=== PATIENT | male | born 1995 | race Caucasian/White ===

== ENCOUNTER 2024-01-25 02:37 | Emergency (ER) | payer OTHER, SELFPAY ==
[2024-01-25 02:39] VITALS: BP 115/89; PULSE 81; RESP 20; TEMP 36.6; O2SAT 100
[2024-01-25 03:05] LABS: Basophils Percent Auto 0.1 % (0.2-1.2); Eosinophils Percent Auto 0.1 % (0-4.4); Hematocrit 35.8 % (42.0-52.0); Immature Granulocyte Absolute 0.05 K/mm3 (0.00-0.031); Immature Granulocyte Percent A 0.5 % (0-0.5); Lymphocytes Absolute Auto 1.07 K/mm3 (0.9-3.2); Lymphocytes Percent Auto 10.3 % (18.3-44.2); Mean Corpuscular HGB Conc 27.9 g/dl (32-36); Mean Corpuscular Hemoglobin 24.3 pg (26-34); Mean Corpuscular Volume 87.1 fl (80-100); Mean Platelet Volume 7.9 fl (7.4-10.4); Monocytes Absolute Auto 1.2 K/mm3 (0.1-0.6); Monocytes Percent Auto 11.9 % (2.6-8.5); Neutrophils Absolute Auto 8.1 K/mm3 (1.3-6.7); Neutrophils Percent Auto 77.1 % (45.5-73.1); Nucleated Red Blood Cells Perc 0.2 % (0.0-0.2); Platelet Count Result 270 k/mm3 (150-375); Red Blood Count 4.11 M/mm3 (4.6-6.20); Red Cell Distribution Width 18.1 % (11.5-14.5); White Blood Count 10.4 K/mm3 (4.5-10.0)
[2024-01-25 03:09] LABS: Anisocytosis 1+ (NORMAL); Hypochromasia 1+ (NORMAL); Platelet Estimate Adequate (Adequate); Schistocytes None Seen (NORMAL)
[2024-01-25 03:17] LABS: Alanine Aminotransferase 18 U/L (6-50); Alkaline Phosphatase 46 U/L (38-126); Anion Gap 4 mmol/L (8-16); Aspartate Amino Transferase 21 U/L (17-59); Bilirubin,Total 0.4 mg/dL (0.2-1.3); Blood Urea Nitrogen 25 mg/dL (9-20); Calcium 8.7 mg/dL (8.4-10.2); Carbon Dioxide 30 mmol/L (22-30); Chloride 104 mmol/L (98-107); Estimated CRCL calculation 113 ml/min; Estimated Glomerular Filt Rate > 60; Glucose 113 mg/dL (65-110); Lipase 50 U/L (23-300); Potassium 4.1 mmol/L (3.4-5.0); Sodium 138 mmol/L (137-145)
[2024-01-25 03:21] LABS: Appearance Urine Clear (Clear); Bilirubin Urine Negative (Negative); Blood Urine Negative (Negative); Color Urine Yellow (Yellow); Glucose Urine UA Negative (Negative); Ketones Urine Trace mg/dL (Negative); Leukocyte Esterase Ur Negative LEU/UL (Negative); Nitrate Urine Negative (Negative); Protein Urine Negative (Negative); Specific Grav Ur 1.034 (1.001-1.035); pH Urine 6.5 (5.0-9.0)
[2024-01-25 03:23] LABS: Add Urine Microscopic? NO
[2024-01-25] MEDS: MORPHINE SULFATE (*CRX) 4 MG/ML INJ IV PUSH (04:18)
[2024-01-25] MEDS: ONDANSETRON INJ 4 MG/2 ML VIAL IV PUSH (04:21)
--- NOTE | 2024-01-25 05:07 | ED.ABDPAIN ---
HPI - Abdominal Pain General Chief Complaint: Abdominal Pain Stated Complaint: crohn's flare-up Time Seen by Provider: 01/25/24 04:13 History of Present Illness HPI narrative: Patient is a 28-year-old male who presents to the emergency department this evening complaining of a Crohn's flare up. Patient states that he was diagnosed with Crohn's many years ago and believes he is currently having a flare. Patient states that he has been having abdominal pain that has been ongoing for a few days. Patient states that his physician put him on steroids and he is currently on steroids. He admits that he takes tramadol as needed for pain but sometimes the tramadol does not alleviate his symptoms. Patient admits that this feels like his usual Crohn's flare-up, he denies any new or different symptoms. He denies any nausea or vomiting, denies any dysuria, hematuria, constipation or diarrhea, melena or hematochezia, fevers or chills. There are no other modifying, alleviating, or precipitating factors at this time. Related Data Allergies Allergy/AdvReac Type Severity Reaction Status Date / Time adalimumab [From Humira] Allergy Intermediate Rash Verified 01/25/24 04:21 infliximab [From Remicade] Allergy Intermediate Chills Verified 01/25/24 04:21 prochlorperazine Allergy Intermediate Anxiety Verified 01/25/24 04:18 [From Compazine] Review of Systems Review of Systems: All systems are reviewed and are negative unless stated otherwise in the HPI. PMFSH Comments Past medical history significant for Crohn's disease, denies any surgical history, denies any significant family history and denies any tobacco use or illicit drug use. Denies any alcohol abuse. Exam Narrative: General: Alert, awake, afebrile, in no acute distress. HEENT: PERRL, no rhinorrhea, no post nasal drip, oropharynx clear. Neck: Trachea midline, no JVD, no lymphadenopathy. Cardiovascular: Regular rate and rhythm, no murmurs, rubs or gallops, no peripheral edema. Respiratory: Clear to auscultation bilaterally, no tachypnea, no wheezing, no rhonchi, no rubs, no respiratory distress. Abdomen: Soft, no tenderness with palpation, nondistended, no rebound, no guarding, no peritoneal signs. Musculoskeletal: No joint swelling or deformity, normal muscle tone. Skin: No rashes or petechia, no signs of infection. Psychiatric: Alert and oriented, normal behavior and judgment for situation. Neurological: Alert and oriented to person, place, and time. Follows all commands. No focal deficits, speech is clear and fluent. Course Vital Signs Vital signs: Vital Signs Temperature 97.8 F 01/25/24 02:39 Pulse Rate 81 01/25/24 02:39 Respiratory Rate 20 01/25/24 02:39 Blood Pressure 115/89 01/25/24 02:39 Pulse Oximetry 100 01/25/24 02:39 Oxygen Delivery Room Air 01/25/24 02:39 Temperature 97.8 F 01/25/24 02:39 Pulse Rate 80 01/25/24 06:53 Respiratory Rate 15 01/25/24 06:53 Blood Pressure 134/81 01/25/24 06:53 Pulse Oximetry 100 01/25/24 06:53 Oxygen Delivery Room Air 01/25/24 02:39 MDM - Abdominal Pain MDM Narrative Medical decision making narrative: The patient was evaluated by myself in the emergency department. History is obtained from patient who is an independent historian and physical exam was performed. External medical records were reviewed at this time. IV was established and pertinent tests were ordered. Patient was administered 4 mg of IV morphine and 4 mg IV Zofran for pain and nausea. Patient was administered a 1 L IV fluid bolus with normal saline. Laboratory results obtained revealing no acute process. Differential diagnosis considerations include Crohn's flare-up given the patient's history of Crohn's disease. Additional differentials include gastritis and pancreatitis. Patient states that this feels similar to his previous Crohn's flare-up and does not want a CT scan at this time. Patient is asking for an add
[2024-01-25] MEDS: SODIUM CHLORIDE 0.9% IV 1,000 ML 999 ML IV CONT (05:16)
[2024-01-25] MEDS: MORPHINE SULFATE (*CRX) 2 MG/ML INJ IV PUSH (05:16)
[2024-01-25 05:30] VITALS: BP 111/77; PULSE 76; RESP 15; O2SAT 100
[2024-01-25] MEDS: HYDROcodone/acetaminophen (*CRX) 5-325 MG TABLET 1 TAB PO (06:10)
[2024-01-25 06:53] VITALS: BP 134/81; PULSE 80; RESP 15; O2SAT 100
== END 2024-01-25 06:20 | disposition home or self-care (01) ==
PROVIDERS: Emergency Provider Emergency Medicine
DX: K50.90 Crohn's disease, unspecified, without complications (principal); Z79.891 Long term (current) use of opiate analgesic
CPT/HCPCS: 36415; 80053; 81003; 83690; 85025; 96361; 96374; 96375; 96376; 99284; A9270; J2270; J2405; J7030